=== PATIENT | female | born 1940 | race Caucasian/White ===

== ENCOUNTER 2023-10-12 23:30 | Inpatient (IN) | payer MEDICARE, MEDICAID, OTHER ==
[~2023-10-12 23:30] MED LIST: ACIPHEX20 MG PO; PREMARIN .3MG0.3 MG PO; SYNTHROID 0.0.025 MG PO
[2023-10-13] VITALS (11 sets, daily range): BP systolic 128–195; BP diastolic 69–99; PULSE 72–99; TEMP 98.2–99.2
[2023-10-13] MEDS ORDERED: ESTRACE0.5 MG PO (01:07)
[2023-10-13] MEDS ORDERED: FOSAMAX 70MG TA70 MG PO (01:07)
[2023-10-13] MEDS ORDERED: SYNTHROID 0.0.025 MG PO (01:08)
[2023-10-13] MEDS ORDERED: SINEMET 25/101 UDTAB PO (01:09)
[2023-10-13] MEDS ORDERED: MASON NATURAL2000 IU PO (01:09)
[2023-10-13] MEDS ORDERED: QUESTRAN4 GM/9 GM PO (01:09)
[2023-10-13] MEDS ORDERED: ARICEPT 5MG PO (01:10)
[2023-10-13] MEDS ORDERED: FOLIC ACID 11 MG/TA1 PO (01:10)
[2023-10-13] MEDS ORDERED: ZYPREXA2.5 MG PO (01:11)
[2023-10-13] MEDS ORDERED: PHARMASSURE ZIN50 MG PO (01:11)
[2023-10-13] MEDS ORDERED: MYRBETR25MG PO (01:11)
[2023-10-13] MEDS ORDERED: NEURONTIN100 MG/CAP PO (01:11)
[2023-10-13] MEDS ORDERED: Ondansetron 4 MG/2 ML VIAL IV PRN (01:15)
[2023-10-13] MEDS ORDERED: NS 1,000 ML IV SCH (01:15)
[2023-10-13] MEDS ORDERED: Acetaminophen 325 MG TAB PO PRN (01:15)
--- NOTE | 2023-10-13 01:23 | NUR ---
pt arrived to room 346 via EMS at 0030. pt shuffled to BS with x2 staff assist and unsteady gait. pt was continent and urinated with clear yellow urine. pt denies burning or urgency with urination. pt alert and oriented to self. pt unable to help much with admission. admission (based on packet), med rec, and physical assessment complete. no skin issues noted. left upper chest pacemaker present. pt noted to have an irregular murmur. PA Kai aware. pt dressed in yellow gown and socks. fall precautions in place. call light in reach. all needs met at this time.
[2023-10-13] MEDS ORDERED: Dextrose 50% Water 25 GM/50 ML SYRINGE IV PRN (02:00)
[2023-10-13] MEDS ORDERED: Glucagon 1 MG VIAL IM PRN (02:00)
[2023-10-13] MEDS ORDERED: Dextrose (Glucose) 15 GM (4 x 3.75 GM) Chewable TABLET PACK PO PRN (02:00)
[2023-10-13] MEDS ORDERED: hydrALAZINE 20 MG/ML 1 ML VIAL IV PRN (03:45)
--- NOTE | 2023-10-13 03:59 | NUR ---
pt noted to have systolic BP of 195. prn hydralazine administered per orders.
--- NOTE | 2023-10-13 04:38 | NUR ---
pt pulled NG tube almost all the way out. NG replaced and pt tolerated well. chest XR to confirm placement once again. fall precautions in place. call light in reach. all needs met at this time.
[2023-10-13] MEDS ORDERED: Heparin 5,000 UNITS/ML 1 ML VIAL SQ SCH (08:00)
--- NOTE | 2023-10-13 08:52 | NUR ---
SHIFT ASSESSMENT COMPLETE. PATIENT AWAKE IN BED WITH DAUGHTER AT BEDSIDE. ALL MORNING MEDS GIVEN PER ORDERS. PATIENT REPORTS NO PAIN THIS AM. FALL PRECAUTIONS IN PLACE AND CALL LIGHT IN REACH.
[2023-10-13] MEDS ORDERED: Pantoprazole 40 MG in NS 10 ML IV SCH (09:00)
--- NOTE | 2023-10-13 09:17 | NUR ---
parks worker and SW Student met with patient and her daughter, Sia, P# [phone], to discuss discharge planning. Patient lives in [facility] in her own home but her daughter, Sia, provides all care for her. PCP is Dr. Hernandez, Pharmacy is [facility] in [place]. Insurance is Medicare A and B, [employer] and for [employer]. Patient has a general/financial DPOA on file, daughter reports she has a DPOA-HC on file with her doctors. DME is rollator walker, lift bath chair, wheelchair and she is getting a ramp, railing and additional grab bars installed. Sia provides assistance with all ADLS and transports her to and from appointments. Patient will return home at time of discharge. MAYKEL discussed home health services and OP PT. Sia explained she has used [facility] before and she will not use them again and she used another out of [place] and will not use them again. reports she has the exercises they have completed in PT printed and she works with her on these exercises. When MAYKEL discussed OP PT, explained she tries to keep patient home where she is most comfortable as much as possible with her dementia. reports she has taken her to OP PT before but she has done well with the continued exercises at home. reports she will be caring for her mother until end of life. Discharge plan: Home
[2023-10-13] MEDS ORDERED: Ketorolac 15 MG/ML VIAL IV ONE ×2 (09:45→22:45)
[2023-10-13 11:27] LABS: BASO # 0.1 K/mm3 (0.0-0.2); BASO % 0.6 % (0.0-2.0); EOS % 0.3 % (0.0-4.0); GRAN # 9.9 K/mm3 (1.4-6.5); GRAN % 70.5 % (42.2-75.2); HEMATOCRIT 43.2 % (37.0-47.0); HEMOGLOBIN 14.1 g/dl (12.5-16.0); LYMPH % 21.3 % (20.0-51.0); MEAN CELL VOLUME 87 fl (80.0-100.0); MEAN CORPUSCULAR HEMOGLOBIN 29 pg (27-31); MEAN CORPUSCULAR HGB CONC 33 g/dl (33.0-37.0); MEAN PLATELET VOLUME 10.6 fl (7.4-10.4); MONO % 6.8 % (1.7-9.3); PLATELET COUNT 175 K/mm3 (130-400); RED BLOOD COUNT 4.94 M/mm3 (4.10-5.30); REDCELL DISTRIBUTION WIDTH-CV 12.8 % (11.5-14.5)
[2023-10-13 11:53] LABS: CALCIUM 8.3 mg/dL (8.4-10.2); CREATININE, serum 0.82 mg/dL (0.57-1.11); MAGNESIUM 1.7 mg/dL (1.6-2.6); POTASSIUM 3.8 mEq/L (3.5-4.5)
--- NOTE | 2023-10-13 18:25 | NUR ---
PATIENT RESTING IN BED AT THIS TIME WITH DAUGHTER AT BEDSIDE. PATIENT HAS HAD A MOSTLY PLEASENT DAY, HAS BEEN REQUESTING TO GO HOME OFF AND ON SINCE ABOUT 1529, THIS NURSE AND DAUGHTER HAVE EXPLAINED TO PATIENT THAT SHE NEEDS TO STAY PER DOCTORS ORDERS FOR HER TO GET BETTER.PATIENT EXPRESSED UNDERSTANDING. PATIENT HAS NO OTHER REQUEST OR COMPAINTS AT THIS TIME. FALL PRECAUTUINS IN PLACE, BED ALARM ON AND CALL LIGHT IN REACH.
--- NOTE | 2023-10-13 18:30 | NUR ---
report received from saul basurto. pt resting in bed watching tv with daughter at bedside. NG remains to LIS. pt denies pain or headache. fall precautions in place. call light in reach. all needs met at this time.
--- NOTE | 2023-10-13 19:45 | NUR ---
shift assessment complete, see documentation. pt refused HS heparin. updated VEGETABLE LOADER Pippa. new order for SCD for VTE prevention. SCD applied, pt tolerated well. pt denies pain. fall precautions in place. call light in reach. all needs met at this time.
--- NOTE | 2023-10-13 22:10 | NUR ---
pt noted to have pulled NG most of the way out. updated FREEMAN Das. updated transformation specialist Dr Walls. scallop cutter machine doc stated it was ok to remove NG the rest of the way and monitor pt for nausea/vomiting. pt agreed with this. bowel sounds present in all quadrants. pt denies N/V. pt tolerated NG removal well. pt now resting in bed. fall precautions in place. call light in reach. all needs met at this time.
[2023-10-14] VITALS (12 sets, daily range): BP systolic 146–161; BP diastolic 79–97; PULSE 70–84; TEMP 97.5–99
[2023-10-14 06:35] LABS: BASO # 0.1 K/mm3 (0.0-0.2); BASO % 0.8 % (0.0-2.0); EOS # 0.2 K/mm3 (0.0-0.7); EOS % 1.3 % (0.0-4.0); GRAN # 7.2 K/mm3 (1.4-6.5); GRAN % 61.3 % (42.2-75.2); HEMATOCRIT 39.9 % (37.0-47.0); HEMOGLOBIN 12.8 g/dl (12.5-16.0); LYMPH # 3.5 K/mm3 (1.2-3.4); LYMPH % 29.9 % (20.0-51.0); MEAN CELL VOLUME 87 fl (80.0-100.0); MEAN CORPUSCULAR HEMOGLOBIN 28 pg (27-31); MEAN CORPUSCULAR HGB CONC 32 g/dl (33.0-37.0); MEAN PLATELET VOLUME 10.6 fl (7.4-10.4); MONO # 0.8 K/mm3 (0.1-0.6); MONO % 6.4 % (1.7-9.3); PLATELET COUNT 149 K/mm3 (130-400); RED BLOOD COUNT 4.58 M/mm3 (4.10-5.30); REDCELL DISTRIBUTION WIDTH-CV 12.9 % (11.5-14.5)
[2023-10-14 07:25] LABS: ALBUMIN 3.2 g/dL (3.4-4.8); BILIRUBIN,TOTAL 0.7 mg/dL (0.2-1.2); CALCIUM 7.9 mg/dL (8.4-10.2); CREATININE, serum 0.7 mg/dL (0.57-1.11); POTASSIUM 3.6 mEq/L (3.5-4.5)
[2023-10-14] MEDS ORDERED: Morphine 4 MG/ML VIAL IV PRN (08:15)
--- NOTE | 2023-10-14 08:32 | NUR ---
Patient resting in bed. Her very involved daughter at bedside. Daughters concerns discussed. Call made to and she is made aware. Orders reviewed. Spoke to and he verified patient may take PO medication. Tylenol Prn for headache. Will sip of water. IVf as ordered. Patient was a 2 assist to bedside to commode to void. High fall risk followed. Will monitor
[2023-10-14] MEDS ORDERED: amLODIPine 5 MG TAB PO SCH (09:00)
[2023-10-14] MEDS ORDERED: Gabapentin 100 MG CAP PO SCH (09:00)
[2023-10-14] MEDS ORDERED: Potassium Bicarbonate/Citrate 20 MEQ Effervescent TAB PO ONE (09:30)
--- NOTE | 2023-10-14 14:02 | NUR ---
Patient resting in bed. Supportive daughter at bedside. Up to the bathroom, voiding adequately. No BM, but passing flatus. Tolerating clears slowly without nausea. Scds BLE. IVF as ordered. Will monitor
[2023-10-14] MEDS ORDERED: Donepezil 5 MG TAB PO SCH (17:00)
[2023-10-14] MEDS ORDERED: OLANZapine 5 MG TAB PO SCH (17:00)
--- NOTE | 2023-10-14 17:47 | NUR ---
Patient resting in bed. Daughter remains at bedside. We ambulated the halls, slow, steady gait. Minimal interest in clear liquids. She is voiding, passing flatus. NO BM. Will report off to nightnurse
[2023-10-15 00:21] VITALS: BP_SYST 155
--- NOTE | 2023-10-15 01:07 | NUR ---
BLOOD SUGAR 58, 25ML IV D50 GIVEN OVER 5MIN, REPEAT BGM UP TO 142
[2023-10-15 03:35] VITALS: BP 141/96; PULSE 86; TEMP 97.8
[2023-10-15 03:56] VITALS: BP_SYST 141
[2023-10-15 05:57] LABS: ALBUMIN 3.1 g/dL (3.4-4.8); ALKALINE PHOSPHATASE 52 U/L (40-150); ANION GAP 10 mmol/L (7-16); AST,SGOT 14 U/L (5-34); BILIRUBIN,TOTAL 0.6 mg/dL (0.2-1.2); BLOOD UREA NITROGEN 6 mg/dL (10-20); CALCIUM 8.3 mg/dL (8.4-10.2); CHLORIDE 111 mEq/L (98-107); CREATININE, serum 0.69 mg/dL (0.57-1.11); SODIUM 144 mEq/L (136-145); TOTAL PROTEIN 5.4 g/dl (6.2-8.1)
[2023-10-15 06:02] LABS: ALANINE AMINOTRANSFERASE < 6 U/L (0-55)
[2023-10-15 06:03] LABS: GLUCOSE 66 mg/dL (70-99)
[2023-10-15 06:04] LABS: POTASSIUM 2.9 mEq/L (3.5-4.5)
--- NOTE | 2023-10-15 06:05 | NUR ---
NOTIFIED TAYLOR Melo APRN OF POTASSIUM OF 2.9 AND GLUCOSE ON THE LOWER SIDE OF NORMAL AT 74 THIS AM, AFTER TREATING WITH D50 AT MIDNIGHT, NEW ORDERS REC'Ismael.
[2023-10-15] MEDS ORDERED: Potassium Chloride 100 ML IV SCH (06:15)
[2023-10-15] MEDS ORDERED: *Potassium Replacement Protocol MC SCH (06:15)
[2023-10-15] MEDS ORDERED: D5NS 1,000 ML IV SCH (06:15)
[2023-10-15 07:56] LABS: BASO # 0.1 K/mm3 (0.0-0.2); BASO % 0.8 % (0.0-2.0); EOS # 0.3 K/mm3 (0.0-0.7); EOS % 2.8 % (0.0-4.0); GRAN # 5.7 K/mm3 (1.4-6.5); GRAN % 64.4 % (42.2-75.2); HEMOGLOBIN 11.6 g/dl (12.5-16.0); LYMPH # 2.2 K/mm3 (1.2-3.4); LYMPH % 24.8 % (20.0-51.0); MEAN CELL VOLUME 87 fl (80.0-100.0); MEAN CORPUSCULAR HEMOGLOBIN 28 pg (27-31); MEAN CORPUSCULAR HGB CONC 32 g/dl (33.0-37.0); MEAN PLATELET VOLUME 10.6 fl (7.4-10.4); MONO # 0.6 K/mm3 (0.1-0.6); MONO % 6.9 % (1.7-9.3); PLATELET COUNT 142 K/mm3 (130-400); RED BLOOD COUNT 4.13 M/mm3 (4.10-5.30); REDCELL DISTRIBUTION WIDTH-CV 12.9 % (11.5-14.5)
[2023-10-15 08:00] VITALS: BP 156/82; PULSE 73; TEMP 98.3
--- NOTE | 2023-10-15 08:00 | NUR ---
SHIFT ASSESSMENT COMPLETE. VSS. PATIENT AWAKE EATING BREAKFAST IN BED W/ DAUGHTER AT BEDSIDE. . DIET PROGRESSED TO GENERAL THIS AM. ALL MORNING MEDS GIVEN PER ORDERS. DAUGHTER STILL REFUSING HEPARIN INJECTIONS. PATIENT EXPRESSED NO PAIN THIS AM AND STATES SHE IS READY TO GO HOME TODAY. ADVISED PATIENT AND PATIENTS DAUGHTER HOPFULLY ONCE WE GET HER PTOASSIUM AND MAGNISUM LEVELS BACK UP SHE CAN GO HOME. PATIENT AND DAUGHTER EXPRESSED UNDERSTANDING. PATIENT AND DAIGHTER HAVE NO OTHER REQUEST OR COMPLAINTS AT [facility] TIME. BED ALARM ON AND CALL LIGHT IN REACH.
[2023-10-15 08:04] LABS: HEMATOCRIT 35.8 % (37.0-47.0)
[2023-10-15] MEDS ORDERED: Magnesium Sulfate 2 GM/50 ML IV SOLN IV ONE (08:30)
--- NOTE | 2023-10-15 09:27 | NUR ---
railroad yard worker attended interdiscplinary clinical rounding with Dr Bauman. Patient is medically ready for discharge. No concerns or needs at this time.
--- NOTE | 2023-10-15 11:35 | NUR ---
PATIENT HAS RECEIVED DISCHARGE ORDERS AND DISHARGE HAS BEEN REVIEWED WITH DAUGHTER. ALL QUESTIONS ANSWERED AND IV REMOVED ALL INTACTED. PATIENT TOLERATED WELL. PATIENT WALKED OUT BY OPERATIONS FORESTER.
== END 2023-10-15 11:48 | disposition home or self-care (01) | DRG 390 ==
LOC: SURG 23:30
PROVIDERS: Physician Assistant; ADMIT Internal Medicine
DX: K56.600 Partial intestinal obstruction, unspecified as to cause (principal); R03.0 Elevated blood-pressure reading, without diagnosis of hypertension; D72.829 Elevated white blood cell count, unspecified
CPT/HCPCS: J0360; J1644; J1885; J2470; J3475; J3480; J7030; J7042